=== PATIENT | male | born 1995 | race Caucasian/White ===

== ENCOUNTER 2016-11-17 20:16 | Emergency (ER) | payer OTHER ==
[2016-11-17 20:49] VITALS: BP 123/86
--- NOTE | 2016-11-17 20:53 | ED Physician Documentation ---
Sore Throat/Dental Pain - HISTORIAN Historian: patient - HPI Stated Complaint: sore throat Chief Complaint: Sore Throat Onset: days ago (yesterday) Associated Symptoms: sore throat Further Comments: yes (21 year old male patient presents with complaint of sore throat which started yesterday. Patient concerned he has strep throat.) - ROS CONST: no problems CVS/RESP: none GI/: denies: nausea, vomiting MS/SKIN/LYMPH: denies: muscle aches, rash, leg swelling, ankle swelling NEURO/PSYCH: none - PAST HX Past History: none Other History: other (ADHD, insomnia) Allergies/Adverse Reactions: Allergies Allergy/AdvReac Type Severity Reaction Status Date / Time No Known Allergies Allergy Verified 11/17/16 20:41 Home Medications: Ambulatory Orders Medication Instructions Recorded Dextroamphetamine/Amphetamine 20 mg PO D 11/17/16 [Adderall 20 mg Tablet] Quetiapine Fumarate [Seroquel] 50 mg PO D 11/17/16 - SOCIAL HX Smoking History: non-smoker - FAMILY HX Family History: No - VITAL SIGNS Vital Signs: Vital Signs Temp Pulse Resp BP Pulse Ox 98.1 F 88 14 123/86 98 11/17/16 20:16 11/17/16 20:16 11/17/16 20:16 11/17/16 20:16 11/17/16 20:16 - REVIEWED ASSESSMENTS Nursing Assessment Reviewed: Yes Vitals Reviewed: Yes ED Results Lab/Radiology - Orders Orders: ED Orders Category Date Time Status Rapid Strep [GRP A STREP SCREEN] Stat Lab 11/17/16 Ordered Sore throat Physical Exam - EXAM General Appearance: no acute distress, alert Head/Neck: head nml inspection, trachea midline, no lymphadenopathy, thyroid nml , neck nml inspection Mouth/Throat: lips nml, gums nml, pharynx nml, voice nml, no drooling, no air way problems, no thrush, membranes nml Respiratory: no resp. distress, breath sounds nml CVS: reg. rate & rhythm, heart sounds nml Skin: normal color, warm/dry, NR, INT, PAL, DR Neuro/Psych: oriented x3, mood/affect nml Discharge Clincal Impression: Sore throat Referrals: Primary Doctor,No [Primary Care Provider] - 2 Days Home Medications: Ambulatory Orders Dextroamphetamine/Amphetamine [Adderall 20 mg Tablet] 20 mg PO D 11/17/16 Quetiapine Fumarate [Seroquel] 50 mg PO D 11/17/16 Condition: Stable Disposition: 01 HOME, SELF-CARE Decision to Admit: NO Decision Time: 20:55
== END 2016-11-17 20:50 | disposition home or self-care (01) ==
LOC: ED 20:16
DX: J02.9 Acute pharyngitis, unspecified (principal)
CPT/HCPCS: 87070; 87880; 99283